=== PATIENT | female | born 1965 | race Caucasian/White ===

== ENCOUNTER 2017-05-31 17:45 | Observation (INO) ==
[2017-05-31 18:53] LABS: Bilirubin,Urine Negative (Negative); Blood,Urine Negative (Negative); Clarity,Urine Clear (Clear); Color,Urine Yellow (Yellow); Glucose,Urine (UA) Normal (Normal); Ketones,Urine Negative (Negative); Leukocyte Esterase,Urine Negative (Negative); Nitrite,Urine Negative (Negative); PH,Urine 6.5 pH Units (5.0-8.0); Protein,Urine Negative (Neg-Trace); Specific Gravity,Urine 1.009 (1.010-1.025); Urobilinogen,Urine Normal (Normal)
[2017-05-31 18:54] LABS: Basophils # 0.1 K/mcL (0.0-0.2); Basophils % 0.5 %; Eosinophils # 0.1 K/mcL (0.0-0.6); Eosinophils % 1.1 %; Hematocrit 41.1 % (35.3-44.9); Hemoglobin 13.5 g/dL (11.5-15.4); Immature Granulocytes % 0.2 % (0-4); Immature Platelets 3.1 % (1.1-6.1); Lymphocytes # 3.8 K/mcL (0.6-4.6); Lymphocytes % 33.3 %; Mean Corpuscular HGB Conc 32.8 g/dL (31.6-35.5); Mean Corpuscular Hemoglobin 29.3 pg (28.0-33.3); Mean Corpuscular Volume 89.3 fL (83.0-100.0); Mean Platelet Volume 9.9 fL (9.4-12.4); Monocytes # 0.9 K/mcL (0.0-1.3); Monocytes % 7.7 %; Neutrophils # 6.5 K/mcL (1.6-8.9); Platelet Count 356 K/mcL (140-400); Red Cell Distribution Width 12.9 % (11.5-14.5); Segmented Neutrophils % 57.2 %
[2017-05-31 19:08] LABS: BUN/Creatinine Ratio 17 (6-26); Blood Urea Nitrogen 13 mg/dL (7-20); Carbon Dioxide 25 mEq/L (19-29); Chloride 104 mEq/L (98-109); Glucose 88 mg/dL (70-99); Osmolality,Calculated 296 (280-300); Potassium 3.7 mEq/L (3.5-4.5); Sodium 143 mEq/L (136-145); eGFR For African Americans > 60 (> 60); eGFR For Non-African Americans > 60 (> 60)
--- NOTE | 2017-05-31 19:55 | Emergency Department Note ---
Disposition Clinical Impression: Syncope and collapse Disposition: Admitted As Inpatient Condition: Good Time of Disposition: 23:00 Syncope HPI - General Chief Complaint: ED Syncope Stated Complaint: syncopal episode Time Seen by Provider: 05/31/17 18:27 Source: patient Limitations: no limitations Nursing Notes Reviewed: Yes Vital Signs Reviewed: Yes - History of Present Illness HPI Narrative: Patient is a 51-year-old female with a history of hypertension and hypertrophic cardiomyopathy who presents with an episode of possible syncope versus seizure earlier today. Patient states this morning, she was standing at her son's doorway talking to him when she all of a sudden felt herself falling and head hitting against the doorway. States she may have had a brief loss of consciousness. States she also wet herself when this happened. Denies any prior history of seizures or passing out like this. Afterwards that she felt real tired and a little confused as to what happened for a few hours afterwards. She had surgery back in 2010 for her cardiomyopathy. States afterwards she has been doing well and has not had any issues. She still follows with cardiology at the [facility]. Currently denying any symptoms. She feels back at her baseline. No nausea, vomiting, chest pain, shortness of breath, abdominal pain, problems with urination or bowel movements. Pt Subjective Complaint: almost passed out, collapsed Onset (ago): hour(s) Number of episodes: 1 Description of Event: post-event confusion, incontinence Prodromal Symptoms: none Witnessed: no Context: standing up Injuries Sustained Associated with Event: none Current Symptoms: none, back to baseline History: other (HOCM) Treatments prior to arrival: none Associated trauma secondary to event: No - Related Data Home Medications Medication Instructions Recorded Confirmed Aspirin Enteric Coated [Aspirin EC] 81 mg PO DAILY 05/31/17 05/31/17 Gabapentin 50 - 150 mg PO Q12H 05/31/17 05/31/17 Lasix mg PO DAILY PRN 05/31/17 Metoprolol [Lopressor] 50 mg PO BID 05/31/17 05/31/17 Omeprazole Magnesium [Prilosec Otc] 20 mg PO QAM 05/31/17 05/31/17 Potassium Chloride mg PO DAILY PRN 05/31/17 Allergies Allergy/AdvReac Type Severity Reaction Status Date / Time pregabalin [From Lyrica] AdvReac Unknown Verified 05/31/17 20:59 All systems ED: reviewed and negative except as stated. Past Medical History - Past Medical History Attestation: Yes The following information was validated with the patient. Source: patient Medical history: Reports: cardiomyopathy, other Psychiatric history: Reports: no psych history - Social History Smoking Status: Never smoker Smokeless Tobacco Status: No Alcohol use: Reports: none Drug use: Reports: none Physical Exam - General Limitations: no limitations General appearance: alert - Head Head exam: atraumatic, normocephalic, normal inspection - Eye Eye exam: Present: normal appearance, PERRL, EOMI - ENT ENT exam: normal exam, normal oropharynx, mucous membranes moist, TM's normal bilaterally - Neck Neck exam: Present: normal inspection, full ROM, trachea midline - Chest Chest inspection: Present: normal inspection, symmetric chest wall rise - Respiratory Respiratory exam: Present: normal lung sounds bilaterally - Cardiovascular Cardiovascular exam: Present: regular rate, normal rhythm, normal heart sounds - Abdominal Exam Abdominal exam: Present: soft, Non-Tender. Absent: tenderness, distention, guarding, rebound, rigidity - Extremities Exam Extremities exam: Present: normal inspection, full ROM. Absent: tenderness, pedal edema - Back Exam Back exam: Present: normal inspection, full ROM. Absent: tenderness - Neurological Exam Neurological exam: Present: alert, oriented X3, CN II-XII intact. Absent: motor sensory deficit - Psychiatric Psychiatric exam: Present: normal affect, normal mood - Skin Skin exam: Present: warm, dry, intact, normal color Course Course Narrative: Patient seen and examined. Syncope versus seizure. No prior history of this. Does have a history of hypertrophic cardiomyopathy. Lab work appears unremarkable. A troponin was added on. We will also get a head scan to rule out any intracranial abnormality. We will discuss with cardiology and then admit for syncope versus seizure. - Reevaluation(s) Reevaluation #1: Labwork unremarkable. We have requested records from [facility] for her most recent cardiology appointment and EKG. we will admit for observation on telemetry. Discussed patient with cardiology Dr. Morrison will see the patient in consult tomorrow. Discussed with hospitalist Dr. Hoffmann who has accepted patient for admission. Time: 23:00 Vital Signs Temperature 98.2 F 05/31/17 18:15 Pulse Rate 69 05/31/17 18:15 Respiratory Rate 18 05/31/17 18:15 Blood Pressure 140/80 05/31/17 18:15 O2 Sat by Pulse Oximetry 97 05/31/17 18:15 Temperature 97.9 F 06/01/17 07:03 Pulse Rate 72 06/01/17 07:03 Respiratory Rate 16 06/01/17 07:03 Blood Pressure 118/76 06/01/17 07:03 O2 Sat by Pulse Oximetry 96 06/01/17 07:03 Oxygen Delivery Oxygen Delivery Room Air Syncope - Medical Records Medical records reviewed: Yes I reviewed the patient's medical records. - Lab Data Lab results reviewed: Yes I reviewed the patient's lab results. Result diagrams: 05/31/17 18:46 05/31/17 18:46 Lab Results 05/31/17 05/31/17 05/31/17 Range/Units 17:20 17:20 18:43 WBC (4.3-11.1) K/mcL RBC (3.82-4.97) M/mcL Hgb (11.5-15.4) g/dL Hct (35.3-44.9) % MCV (83.0-100.0) fL MCH (28.0-33.3) pg MCHC (31.6-35.5) g/dL RDW (11.5-14.5) % Plt Count (140-400) K/mcL MPV (9.4-12.4) fL Immature Gran % (0-4) % Seg Neutrophils % % Lymphocytes % % Monocytes % % Eosinophils % % Basophils % % Neutrophils # (1.6-8.9) K/mcL Lymphocytes # (0.6-4.6) K/mcL Monocytes # (0.0-1.3) K/mcL Eosinophils # (0.0-0.6) K/mcL Basophils # (0.0-0.2) K/mcL Immature Plt Fraction (1.1-6.1) % Sodium (136-145) mEq/L Potassium (3.5-4.5) mEq/L Chloride (98-109) mEq/L Carbon Dioxide (19-29) mEq/L BUN (7-20) mg/dL Creatinine (0.57-1.11) mg/dL Est GFR ( Amer) (> 60) Est GFR (Non-Af Amer) (> 60) BUN/Creatinine Ratio (6-26) Glucose (70-99) mg/dL POC Glucose 90 H (58-89) Calculated Osmolality (280-300) Calcium (8.6-10.8) mg/dL Urine Color Yellow (Yellow) Urine Clarity Clear (Clear) Urine pH 6.5 (5.0-8.0) pH Units Ur Specific [place] 1.009 L (1.010-1.025) Urine Protein Negative (Neg-Trace) mg/dL Urine Glucose (UA) Normal (Normal) mg/dL Urine Ketones Negative (Negative) mg/dL Urine Blood Negative (Negative) Urine Nitrite Negative (Negative) Urine Bilirubin Negative (Negative) Urine Urobilinogen Normal (Normal) mg/dL Ur Leukocyte Esterase Negative (Negative) Ur Culture Indicated? NO (NO) Urine Test Negative (Negative) 05/31/17 05/31/17 Range/Units 18:46 18:46 WBC 11.3 H (4.3-11.1) K/mcL RBC 4.60 (3.82-4.97) M/mcL Hgb 13.5 (11.5-15.4) g/dL Hct 41.1 (35.3-44.9) % MCV 89.3 (83.0-100.0) fL MCH 29.3 (28.0-33.3) pg MCHC 32.8 (31.6-35.5) g/dL RDW 12.9 (11.5-14.5) % Plt Count 356 (140-400) K/mcL MPV 9.9 (9.4-12.4) fL Immature Gran % 0.2 (0-4) % Seg Neutrophils % 57.2 % Lymphocytes % 33.3 % Monocytes % 7.7 % Eosinophils % 1.1 % Basophils % 0.5 % Neutrophils # 6.5 (1.6-8.9) K/mcL Lymphocytes # 3.8 (0.6-4.6) K/mcL Monocytes # 0.9 (0.0-1.3) K/mcL Eosinophils # 0.1 (0.0-0.6) K/mcL Basophils # 0.1 (0.0-0.2) K/mcL Immature Plt Fraction 3.1 (1.1-6.1) % Sodium 143 (136-145) mEq/L Potassium 3.7 (3.5-4.5) mEq/L Chloride 104 (98-109) mEq/L Carbon Dioxide 25 (19-29) mEq/L BUN 13 (7-20) mg/dL Creatinine 0.78 (0.57-1.11) mg/dL Est GFR ( Amer) > 60 (> 60) Est GFR (Non-Af Amer) > 60 (> 60) BUN/Creatinine Ratio 17 (6-26) Glucose 88 (70-99) mg/dL POC Glucose (58-89) Calculated Osmolality 296 (280-300) Calcium 11.0 H (8.6-10.8) mg/dL Urine Color (Yellow) Urine Clarity (Clear) Urine pH (5.0-8.0) pH Units Ur Specific [place] (1.010-1.025) Urine Protein (Neg-Trace) mg/dL Urine Glucose (UA) (Normal) mg/dL Urine Ketones (Negative) mg/dL Urine Blood (Negative) Urine Nitrite (Negative) Urine Bilirubin (Negative) Urine Urobilinogen (Normal) mg/dL Ur Leukocyte Esterase (Negative) Ur Culture Indicated? (NO) Urine Test (Negative) - Radiology Data Radiology results reviewed: Yes I reviewed the patient's radiology results. Head CT 05/31/17 19:20 IMPRESSION: No acute intracranial abnormality. D/ / Nehemias Almendarez MD / Nehemias Almendarez MD Interpreting Provider: Nehemias Almendarez MD - EKG Data EKG attestation: Yes I reviewed and interpreted this EKG. EKG results narrative: EKG done at 1837 shows normal sinus rhythm with a rate of 73 bpm. Diffuse inverted T waves in leads V5 and V6, 1, aVL. Left bundle branch block present. Attestation Statement - Attestation Attestation: I examined this patient and my medical decision-making was reviewed with the Resident Physician. I agree with the documented findings, disposition and treatment plan as described except to the extent set forth below. Patient to the ED with a chief complaint of a possible syncopal episode. Patient had a loss of consciousness this morning when she fell against the door. She had no symptoms prior to. Patient has a history of hypertrophic cardiomyopathy. On examination she is well-appearing. Heart regular rate and rhythm and lungs clear. Plan. Patient medically stable here. She does have a history of hypertrophic cardiomyopathy with surgery. EKG shows a left bundle- branch block. Similar to her old EKG from [facility]. She is not having any chest pain or difficulty in breathing. Rn Wound in consult. She is admitted to the hospitalist.
[2017-05-31] MEDS ORDERED: *HR* HYDROcodone/Acet 5/325 mg TABLET PO PRN (23:05)
[2017-05-31] MEDS ORDERED: Naloxone 0.4 MG/ML INJ IVP PRN (23:05)
[2017-05-31] MEDS ORDERED: *HR* Morphine 2 MG/ML SYRINGE IVP PRN (23:05)
[2017-05-31] MEDS ORDERED: Ondansetron 4 MG/2 ML VIAL IVP PRN (23:05)
[2017-05-31] MEDS ORDERED: *HR* Promethazine 25 MG/ML VIAL IVP PRN (23:05)
[2017-06-01] MEDS: Acetaminophen 325 MG TABLET PO PRN ×2 (00:09→11:25)
--- NOTE | 2017-06-01 01:49 | Internal Med History&Physical ---
Date of Encounter: 05/31/17 Time of Encounter: 23:00 Assessment and Plan (1) Syncope and collapse Current visit: Yes Status: Acute Will place the pt into Tele for observation Her syncope seems to be more like vasovagal reaction since she had full bladder and urgency before she passed out However with her underline HCM, definitely need to r/o ACS vs [place] will put her on cardiac technologist check serial troponin EKG showed NSR with VR 73, T wave abnormalities, and chronic LBBB noticed Will get 2 D Echo in AM Will get carotid doppler b/l cont ASA + B ivon (2) Hypertrophic cardiomyopathy Current visit: Yes Status: Chronic resumed home meds 2D Echo in AM (3) Essential hypertension Current visit: Yes Status: Chronic stable with home meds (4) GERD (gastroesophageal reflux disease) Current visit: Yes Status: Chronic resumed home med PPI Qualifiers: Qualified Code(s): K21.9 - Gastro-esophageal reflux disease without esophagitis Internal Medicine - H&P: HPI Chief complaint: Syncope Admitted From: Emergency Dept Plans for Post Hospital Care: Home History of present illness: Ms. Hunter is a 51 year old female with a history of hypertension and hypertrophic cardiomyopathy who presented to our ER with an episode of possible syncope earlier today. Patient states this morning, she was standing at her son 's doorway talking to him when she all of a sudden felt herself falling and head hitting against the doorway. States she may have had a brief loss of consciousness. States she also wet herself when this happened. However she mentioned she had full bladder and urgency before she passed out. She had surgery back in 2010 for her cardiomyopathy. States afterwards she has been doing well and has not had any issues. She still follows with cardiology at the [facility]. Currently denying any symptoms. She feels back to her baseline. No nausea, vomiting, chest pain, shortness of breath, abdominal pain, problems with urination or bowel movements. Past Med Surg Social Fam HX - Past Medical History Medical history: cardiomyopathy, other Psychiatric history: no psych history - Social History Smoking Status: Never smoker Smokeless Tobacco Status: No Alcohol use: rarely Drug use: none - Family History Mother Hx Family Cardiac Disorders: Yes (HOCM, Heart Transplant) Hx Family Respiratory Disorders: Yes (COPD) Hx Family Cancer: No Hx Family GI Disorders: No Hx Family Genitourinary Disorders: No Hx Family Endocrine Disorder: No Hx Family Musculoskeletal Disorders: No Hx Family Neuromuscular Disorders: No Hx Family Neurologic Disorders: No Hx Family HEENT Disorders: No Hx Family Autoimmune Disorders: No Hx Family Reproductive Disorders: No Hx Family Psychosocial Disorders: No Hx Family Medical Disorders: No Maternal Grandmother Hx Family Cardiac Disorders: Yes Hx Family Respiratory Disorders: No Hx Family Cancer: No Hx Family GI Disorders: No Hx Family Genitourinary Disorders: No Hx Family Endocrine Disorder: No Hx Family Musculoskeletal Disorders: No Hx Family Neuromuscular Disorders: No Hx Family Neurologic Disorders: No Hx Family HEENT Disorders: No Hx Family Autoimmune Disorders: No Hx Family Reproductive Disorders: No Hx Family Psychosocial Disorders: No Hx Family Medical Disorders: No Internal Medicine - H&P: Meds Aspirin Enteric Coated [Aspirin EC] 81 mg PO DAILY 05/31/17 [History] Gabapentin 50 - 150 mg PO Q12H 05/31/17 [History] Lasix mg PO DAILY PRN 05/31/17 [History] Metoprolol [Lopressor] 50 mg PO BID 05/31/17 [History] Omeprazole Magnesium [Prilosec Otc] 20 mg PO QAM 05/31/17 [History] Potassium Chloride mg PO DAILY PRN 05/31/17 [History] 3 Allergy/AdvReac Type Severity Reaction Status Date / Time pregabalin [From Lyrica] AdvReac Unknown Verified 05/31/17 20:59 All Systems PM: A 10-system review of systems was performed and is negative for pertinent findings except as documented above in the HPI. Review of systems: All the systems are reviewed everything is benign except the systems and symptoms I mentioned in the history of present illness - Constitutional Vitals: Temp Pulse Resp BP Pulse Ox 97.7 F 64 20 129/75 98 05/31/17 23:08 05/31/17 23:11 05/31/17 23:08 05/31/17 23:11 05/31/17 23:08 General appearance: Present: A&O X 3, no acute distress, answers questions appropriately - Head Head exam: Present: atraumatic, normal inspection - Respiratory Respiratory exam: Present: decreased breath sounds. Absent: rales, respiratory distress, rhonchi, wheezes - Cardiovascular Cardiovascular exam: Present: RRR, +S1, +S2. Absent: systolic murmur - GI/Abdominal GI/Abdominal exam: Present: normal bowel sounds, soft. Absent: rebound, rigid, tenderness - Extremities Exam Extremities exam: Absent: calf tenderness, pedal edema, tenderness - Back Exam Back exam: Absent: CVA tenderness (L), CVA tenderness (R) - Neurological Exam Neurological exam: Present: alert, oriented X3 - Psychiatric Psychiatric exam: Present: normal affect, normal mood Internal Med - H&P Results - Labs CBC & Chem 7: 05/31/17 18:46 05/31/17 18:46 Labs: Cardiac Enzymes 05/31/17 Range/Units Unknown Troponin I 0.00 (0-0.03) ng/mL
[2017-06-01 02:16] LABS: Chol/HDL Ratio 6.5 (0-4.9); Cholesterol 209 mg/dL (< 200); HDL Cholesterol 32 mg/dL (40-59); Triglycerides 531 mg/dL (< 150)
[2017-06-01 02:38] LABS: Thyroid Stimulating Hormone 5.509 mcIU/mL (0.350-4.840)
[2017-06-01] MEDS ORDERED: Aspirin Enteric Coated 81 MG Tablet PO SCH (09:00)
[2017-06-01 11:11] VITALS: BP 131/81
--- NOTE | 2017-06-01 14:33 | Discharge Summary ---
Date of Encounter: 06/01/17 Time of Encounter: 08:50 - Discharge Diagnosis (1) Syncope and collapse Priority: Primary Status: Acute Comments: Etiology remains uncertain but so far workup here has been negative. Would recommend follow-up with cardiology as outpatient for further management. Patient may need Holter or loop recorder monitoring to ascertain any arrhythmia. (2) Hypertrophic cardiomyopathy Priority: Secondary Status: Chronic (3) Essential hypertension Priority: Secondary Status: Chronic (4) GERD (gastroesophageal reflux disease) Priority: Secondary Status: Chronic Qualifiers: Esophagitis presence: without esophagitis Qualified Code(s): K21.9 - Gastro -esophageal reflux disease without esophagitis (5) Carotid stenosis, bilateral Priority: Secondary Status: Acute - Discharge Medications Prescriptions: Pravastatin Sodium [Pravachol] 20 mg PO HS #30 tablet Home Medications: Aspirin Enteric Coated [Aspirin EC] 81 mg PO DAILY 05/31/17 [History] Gabapentin 50 - 150 mg PO Q12H 05/31/17 [History] Lasix mg PO DAILY PRN 05/31/17 [History] Metoprolol [Lopressor] 50 mg PO BID 05/31/17 [History] Omeprazole Magnesium [Prilosec Otc] 20 mg PO QAM 05/31/17 [History] Potassium Chloride mg PO DAILY PRN 05/31/17 [History] Pravastatin Sodium [Pravachol] 20 mg PO HS #30 tablet 06/01/17 [Rx] Allergies/Adverse Reactions: 3 Allergy/AdvReac Type Severity Reaction Status Date / Time pregabalin [From Lyrica] AdvReac Unknown Verified 05/31/17 20:59 Procedures/tests Complete & Pending: Procedures Performed prior 72 hours Category Date Time Status EV carotid duplex imaging BI Routine Y 06/01/17 10:00 Completed EV echocardiogram Routine Y 06/01/17 10:00 Completed Date of admission: 05/31/17 21:23 Primary care physician: Isaías Gutierrez Discharging clinician: Raegan Kim Anticipated date of discharge: 06/01/17 - Patient Status Disposition: Home, Self-Care Condition: Good Functional capacity at discharge: independent ambulation Overall status at discharge: patient is progressing back to baseline - Discharge Instructions Instructions: Influenza Virus Vaccine (Injection), Pacemaker (DC), Syncope (DC) , Chronic Hypertension (DC) Follow Up With: Isaías Gutierrez, DO [Primary Care Provider] - (In 1-2 weeks) Additional Instructions: Follow up with your sole tier as early as possible. Avoid driving until you follow up with his sole tier or primary care provider. - Diet and Activity Activity: increase activity as tolerated Diet: low fat, low cholesterol, low salt diet Hospital course: Ms. Hunter is a 51 year old female patient with history of essential hypertension, gastroesophageal reflux disease, hypertrophic cardiomyopathy status post surgery presented to the ER after a spontaneous syncopal episode without any aura or prodromal symptoms. Episode lasted for about 30 seconds. She did have incontinence but believes that she probably had a full bladder as per prior to the episode. This was witnessed episode under was no seizure-like activity. At the time patient returned to consciousness, she was back to baseline. She denies any palpitations. No chest pain. She has never had similar kind of symptoms before even prior to her heart surgery. No recent antibiotics. No fever or chills. No medications reported. Patient was hospitalized here and monitored with telemetry. She underwent carotid Dopplers and 2-D echocardiogram in addition to CT scan of the head. CT of the head did not reveal any acute bleed or stroke. Carotid Dopplers showed right ICA distal stenosis of 60-79% range and left ICA mid 40-59% stenosis. While these do not require urgent intervention, they will need to be followed. Patient will be referred to her sole tier for further management. 2-D echocardiogram done here shows EF of 65-70% with mild left ventricular diastolic dysfunction. EKG showed normal sinus rhythm with chronic left bundle branch block. Patient was monitored with telemetry and no significant arrhythmias were identified. At this time, she is feeling much better and is stable for discharge home. She will follow-up with her sole tier for further management. She has been advised to contact him on Saturday as early as possible to set up a follow-up visit. Her orthostatic blood pressure was within normal limits. - Time Spent with Patient Total time spent providing and/or coordinating discharge services: Greater than 30 minutes (35 min) - Constitutional Vitals: Temp Pulse Resp BP Pulse Ox 98.0 F 66 16 131/81 98 06/01/17 11:10 06/01/17 11:10 06/01/17 11:10 06/01/17 11:10 10/07/17 11:10 General appearance: Present: A&O X 3, no acute distress, answers questions appropriately - Respiratory Respiratory exam: Present: CTAB. Absent: accessory muscle use, rales, rhonchi, wheezes - Cardiovascular Cardiovascular exam: Present: RRR, +S1, +S2. Absent: diastolic murmur, gallop, rubs, systolic murmur - GI/Abdominal GI/Abdominal exam: Present: normal bowel sounds, soft, no peritoneal signs. Absent: distended, tenderness - Extremities Exam Extremities exam: Present: warm, radial pulses palpable and symmetrical. Absent : calf tenderness, cyanotic, pedal edema - Neurological Exam Neurological exam: Present: alert, oriented X3, no focal deficits, strengths equal and symetr throughout. Absent: facial droop, speech deficit
[2017-06-01 15:04] LABS: Triiodothyronine (T3) Free 2.73 pg/mL (1.71-3.71)
--- NOTE | 2017-06-02 16:00 | Carotid Imaging Report ---
Carotid Duplex Patient Name:Hawa Hunter Order Number:[id number] Procedure Date:06/01/2017 Date:1965Age:51 yrs Gender:Female Rt.BP:118 / 76 mmHgHeart Rate: Location:[facility] Room #: [facility] Dental Practice Manager:Magaly Adams, VEENAT, RDCS Referring MD:Mono Kelsey MD beef cattle farm manager:Isaías Gutierrez DO Reading MD:Nick Galeas MD Primary Indications:syncope Risk Factors Yes/No Hypertension Yes Impressions: The right internal carotid artery has a 60-79% stenosis. The left internal carotid artery has a 40-59% stenosis. Recommendations: Risk factor reduction. Further evaluation recommended if clinically indicated. Follow-up carotid duplex in 6 months. Findings Carotid Duplex: Right: The right proximal common carotid artery has a PSV of 106 cm/s and a EDV of 24 cm/s. The right mid common carotid artery has a PSV of 108 cm/s and a EDV of 29 cm/s. The right distal common carotid artery has a PSV of 103 cm/s and a EDV of 29 cm/s. There is nonstenotic plaque in the right bifurcation with a PSV of 90 cm/s and a EDV of 31 cm/s. There is smooth heterogeneous plaque. There is nonstenotic plaque in the right proximal internal carotid artery with a PSV of 97 cm/s and a EDV of 24 cm/s. There is smooth heterogeneous plaque. There is nonstenotic plaque in the right mid internal carotid artery with a PSV of 97 cm/s and a EDV of 37 cm/s. There is smooth heterogeneous plaque. There is 60-79% stenosis in the right distal internal carotid artery with a PSV of 230 cm/s and a EDV of 70 cm/s. There is smooth heterogeneous plaque. The right eca has a PSV of 173 cm/s and a EDV of 22 cm/s. The right vertebral artery has a PSV of 58 cm/s and a EDV of 18 cm/s. Left: The left proximal common carotid artery has a PSV of 104 cm/s and a EDV of 27 cm/s. The left mid common carotid artery has a PSV of 103 cm/s and a EDV of 33 cm/s. The left distal common carotid artery has a PSV of 107 cm/s and a EDV of 35 cm/s. There is nonstenotic plaque in the left bifurcation with a PSV of 77 cm/s and a EDV of 21 cm/s. There is smooth heterogeneous plaque. There is nonstenotic plaque in the left proximal internal carotid artery with a PSV of 108 cm/s and a EDV of 31 cm/s. There is smooth heterogeneous plaque. There is 40-59% stenosis in the left mid internal carotid artery with a PSV of 134 cm/s and a EDV of 42 cm/s. There is smooth heterogeneous plaque. The left distal internal carotid artery has a PSV of 75 cm/s and a EDV of 31 cm/s. The left eca has a PSV of 95 cm/s and a EDV of 10 cm/s. The left vertebral artery has a PSV of 73 cm/s and a EDV of 23 cm/s. Carotid Results Right PSV EDV Assessment Proximal CCA 106 24 Mid CCA 108 29 Distal CCA 103 29 Bifurcation 90 31 Non Stenotic Plaque Proximal ICA 97 24 Non Stenotic Plaque Mid ICA 97 37 Non Stenotic Plaque Distal ICA 230 70 60-79% stenosis ECA 173 22 Vertebral Artery 58 18 Left PSV EDV Assessment Proximal CCA 104 27 Mid CCA 103 33 Distal CCA 107 35 Bifurcation 77 21 Non Stenotic Plaque Proximal ICA 108 31 Non Stenotic Plaque Mid ICA 134 42 40-59% stenosis Distal ICA 75 31 ECA 95 10 Vertebral Artery 73 23 Ratio's Right ICA/CCA Ratio: 2.13 Left ICA/CCA Ratio: 1.30 Updated by Nick Galeas MD on 06/02/2017 3:54:35 PM electronically signed on 06/02/2017 3:54:45 PM with status of Final
--- NOTE | 2017-06-03 18:28 | Electrocardiograph Report ---
[place] [id number] Test Date: 2017-05-31 Pat Name: Hawa Hunter Department: 103 Room: 3B48 Gender: F Dental Scheduler: : 1965 Requested By: Tesfaye Tellez Order Number: [id number] Reading MD: Rolf Morrison MD Measurements Intervals [place] Rate: 73 P: 45 UT: 159 QRS: 28 QRSD: 133 T: 146 QT: 403 QTc: 429 Interpretive Statements SINUS RHYTHM WITH SINUS ARRHYTHMIA LEFT BUNDLE BRANCH BLOCK BASELINE ARTIFACT Electronically Signed On 06-03-2017 18:27:03 EDT by Rolf Morrison MD
== END 2017-06-01 15:18 | disposition home or self-care (01) ==
LOC: EMEROO 17:45 → 3BNU 17:45 → SUATTDRO 21:23 → 3BNU 22:36
PROVIDERS: ADMIT Family Medicine; ATTEND Internal Medicine